=== PATIENT | male | born 1980 | race Caucasian/White ===

== ENCOUNTER 2016-10-03 19:18 | Emergency (ER) | payer MEDICAID, OTHER ==
[~2016-10-03] VITALS: Wt 96.0 kg
[2016-10-03] MEDS ORDERED: IBUPROFEN 800 MG TAB PO ONE (20:30)
--- NOTE | 2016-10-03 21:56 | RADRPT ---
PROCEDURE: XR Chest. CLINICAL INDICATION: Left chest pain. TECHNIQUE: Single frontal view. COMPARISON: None. FINDINGS: The lungs are clear. The heart size is normal. There is no pleural effusion. There is no pneumothorax. IMPRESSION: 1. Normal chest radiograph. RPTAT: QQ .Red Pittman MD, Date Time Electronically viewed and signed by .Red Pittman MD, on 10/03/2016 21:56 .R/
--- NOTE | 2016-10-03 21:56 | RADRPT ---
PROCEDURE: Xray left ribs. CLINICAL INDICATION: Left rib pain. TECHNIQUE: Three views of the left ribs. COMPARISON: None available FINDINGS: The osseous structures and surrounding soft tissues of the left rib cage are intact. No acute fract ure is seen. No radiopaque foreign body is identified. IMPRESSION: 1. Unremarkable left ribs x-ray series. RPTAT: QQ .Red Pittman MD, MD Date Time Electronically viewed and signed by .Red Pittman MD, on 10/03/2016 21:56 .R/
[2016-10-03] MEDS ORDERED: NAPR-260 PO (22:29)
--- NOTE | 2016-10-03 23:10 | ERD ---
ER Documentation Chief Complaint Date/Time DATE: 10/03/16 TIME: 23:06 Chief Complaint Injured while working in the attic and has Left rib pain HPI 35-year-old male patient with no significant past medical history presents the ED complaining of a left rib injury that occurred 1 week ago. States that he was working in the attic and accidentally hit the left side of his ribs onto the shelf. States that he heard a crack in his left rib region. Describes the pain as pressure-like. Denies any chest pain, shortness of breath, wheezing, dyspnea on exertion, orthopnea, abdominal pain, nausea, vomiting, diarrhea, weakness, numbness or tingling. States that he tried taking Tylenol without relief. ROS All systems reviewed and are negative except as per history of present illness. Medications Home Meds Active Scripts Naproxen* (Naprosyn*) 500 Mg Tablet, 500 MG PO BID Y for PAIN AND/OR INFLAMMATION, #30 TAB Prov:GEORGES BRIGGS PA-C 10/03/16 Allergies Allergies: Coded Allergies: No Known Allergy (Unverified , 10/03/16) PMhx/Soc Medical and Surgical Hx: pt denies Medical Hx, pt denies Surgical Hx Hx Alcohol Use: Yes (occassional) Hx Substance Use: No Hx Tobacco Use: No Smoking Status: Current some day smoker Physical Exam Vitals Vital Signs Date Time Temp Pulse Resp B/P Pulse Ox O2 Delivery O2 Flow Rate FiO2 10/03/16 19:25 98.4 85 20 118/68 98 Physical Exam Const: [id number]-[id number], well-nourished. In no acute distress. Head: Atraumatic, normocephalic Eyes: Normal Conjunctiva without injection. No purulent discharge. PERRL. EOMI ENT: Normal external ear. Ear canal without erythema. Tympanic membrane pearly cedeño without effusion or bulging. Nasal canal clear with normal turbinates. Moist oropharynx without tonsillar exudates. Non-erythematous pharynx. Uvula midline. No drooling. No trismus. Neck: Full range of motion. No meningismus. No cervical lymphadenopathy. Resp: Clear to auscultation bilaterally. No wheezing, rhonchi, rales, or crackles. No accessory muscle use. No retractions. Cardio: Regular rate and rhythm. No murmurs, rubs or gallops. Chest: Lateral left sided rib is tender to palpation. No ecchymosis, edema, erytehma noted. Pain is reproducible. Abd: Soft, non tender, non distended. No left upper quadrant pain. Normal bowel sounds. No palpable masses. No rebound tenderness. No guarding. Skin: No petechiae or rashes Back: No midline tenderness. No CVA tenderness. Ext: No cyanosis, or edema. Neur: Awake and alert. Psych: Normal Mood and Affect Results 24 hrs Current Medications Medications (Trade) Dose Ordered Sig/Brittani Route PRN Reason Start Time Stop Time Status Last Admin Dose Admin Ibuprofen (Motrin) 800 mg ONCE ONCE PO 10/03/16 20:30 10/03/16 20:31 DC 10/03/16 20:07 Procedures/MDM This is a 35-year-old male with no significant past medical history presents the ED complaining of a left rib contusion that occurred 1 week ago. Patient is afebrile and nontoxic-appearing. Patient has normal vital signs. Patient was further evaluated with a chest x-ray and left rib x-ray. Patient was given ibuprofen here in the ED with improvement of his pain. PROCEDURE: Xray left ribs. CLINICAL INDICATION: Left rib pain. TECHNIQUE: Three views of the left ribs. COMPARISON: None available FINDINGS: The osseous structures and surrounding soft tissues of the left rib cage are intact. No acute fracture is seen. No radiopaque foreign body is identified. IMPRESSION: 1. Unremarkable left ribs x-ray series. PROCEDURE: XR Chest. CLINICAL INDICATION: Left chest pain. TECHNIQUE: Single frontal view. COMPARISON: None. FINDINGS: The lungs are clear. The heart size is normal. There is no pleural effusion. There is no pneumothorax. IMPRESSION: 1. Normal chest radiograph. No evidence of rib fracture. Patient likely sustained a left rib contusion. Low suspicion for acute myocardial infarction, pneumothorax, pneumonia, cardiac tamponade, pulmonary embolism, pleural effusion, AAA, aortic dissection, Boerhaave's syndrome, cardiac dysrhythmias,meningitis, intracranial bleed, seizure, stroke, TIA or other emergent conditions. Discharge medications: Naproxen Follow up with primary care physician in 1-2 days. Instructed patient to return to the ED sooner for any worsening symptoms. Patient's questions were answered. Patient understood and agreed with discharge plan. Patient discharged stable. Departure Diagnosis: Primary Impression: Rib pain on left side Condition: Stable Patient Instructions: Rib Contusion Referrals: [facility] YOU HAVE RECEIVED A MEDICAL SCREENING EXAM AND THE RESULTS INDICATE THAT YOU DO NOT HAVE A CONDITION THAT REQUIRES URGENT TREATMENT IN THE EMERGENCY DEPARTMENT. FURTHER EVALUATION AND TREATMENT OF YOUR CONDITION CAN WAIT UNTIL YOU ARE SEEN IN YOUR DOCTORS OFFICE WITHIN THE NEXT 1-2 DAYS. IT IS YOUR RESPONSIBILITY TO MAKE AN APPOINTMENT FOR FOLOW-UP CARE. IF YOU HAVE A PRIMARY DOCTOR --you should call your primary doctor and schedule an appointment IF YOU DO NOT HAVE A PRIMARY DOCTOR YOU CAN CALL OUR PHYSICIAN REFERRAL HOTLINE AT IF YOU CAN NOT AFFORD TO SEE A PHYSICIAN YOU CAN CHOSE FROM THE FOLLOWING [facility] [address] [facility] [address] [facility] [facility] [address] [facility] [address] [facility] [address] [facility]. [facility] [address] [facility]. [facility] YOU HAVE RECEIVED A MEDICAL SCREENING EXAM AND THE RESULTS INDICATE THAT YOU DO NOT HAVE A CONDITION THAT REQUIRES URGENT TREATMENT IN THE EMERGENCY DEPARTMENT. FURTHER EVALUATION AND TREATMENT OF YOUR CONDITION CAN WAIT UNTIL YOU ARE SEEN IN YOUR DOCTORS OFFICE WITHIN THE NEXT 1-2 DAYS. IT IS YOUR RESPONSIBILITY TO MAKE AN APPOINTMENT FOR FOLOW-UP CARE. IF YOU HAVE A PRIMARY DOCTOR --you should call your primary doctor and schedule and appointment IF YOU DO NOT HAVE A PRIMARY DOCTOR YOU CAN CALL OUR PHYSICIAN REFERRAL HOTLINE AT . IF YOU CAN NOT AFFORD TO SEE A PHYSICIAN YOU CAN CHOSE FROM THE FOLLOWING [facility]: [facility] [address] [place] [address] [facility] [address] [place] [address] [facility] [address] [place] [address] [facility] URGENT CARE/SPECIALTIES Additional Instructions: Visite a mata mdico maana para un EXAMEN.Regrese a estas instalaciones si no se mejora forrest esperbamos o forrest le dijimos. GEORGES BRIGGS PA-C October 03, 2016 23:10
== END 2016-10-03 22:51 | disposition home or self-care (01) ==
LOC: FTE 19:18
DX: R07.81 Pleurodynia (principal); F17.210 Nicotine dependence, cigarettes, uncomplicated; Z04.3 Encounter for examination and observation following other accident
CPT/HCPCS: 71010; 71100; Z7502; Z7610